=== PATIENT | male | born 1955 | race Caucasian/White ===

== ENCOUNTER 2019-11-02 11:28 | Emergency (ER) | payer OTHER, BC ==
[~2019-11-02] VITALS: Ht 180.3 cm; Wt 94.8 kg
--- NOTE | 2019-11-02 11:48 | NUR ---
PT AMBULATORY TO ED ROOM 7, ACCOMPANIED BY SPOUSE. PT A&OX4, RESP EVEN & UNLABORED, SPEECH CLEAR, SKIN WNL. C/O "MY HEART RATE IS DOUBLE WHAT IT NORMALLY IS". NOTICED INCREASE AT 0400 TODAY. DENIES CP, N/V, COLD SWEATS, CARDIAC HX. SOME LIGHTHEADEDNESS. NO MED TAKEN FOR SX. TRIED CBD OIL LAST NOC (FOR [facility]) - 1ST TIME IN A LONG TIME. LAST ORAL INTAKE: 829 TODAY. LAST BM: TODAY.
[2019-11-02] MEDS ORDERED: LORazepam 1MG TABLET PO ONE (12:00)
[2019-11-02] MEDS ORDERED: METF500T17 PO (12:06)
[2019-11-02] MEDS ORDERED: ATOR20TA86 PO (12:06)
[2019-11-02] MEDS ORDERED: CARB1TAB47 PO (12:06)
[2019-11-02] MEDS ORDERED: LORazepam 1MG TABLET ONE (12:08)
--- NOTE | 2019-11-02 12:12 | NUR ---
EKG DONE. ATIVAN GIVEN PER EMAR.
[2019-11-02 12:24] LABS: BASOPHILS # (AUTO) 0.03 x10^3/uL (0-0.1); BASOPHILS % (AUTO) 0 % (0-1); EOSINOPHILS % (AUTO) 0 % (1-7); LYMPHOCYTES # (AUTO) 1.34 x10^3/uL (1-3.4); LYMPHOCYTES % (AUTO) 16 % (22-44); MD NO; MEAN CORPUSCULAR HEMOGLOBIN 31.5 pg (27.5-34.5); MEAN CORPUSCULAR HGB CONC 33.4 g/dL (33.2-36.2); MEAN CORPUSCULAR VOLUME 94.2 fL (81-97); MEAN PLATELET VOLUME 7.8 fL (7.4-10.4); MONOCYTES % (AUTO) 6 % (2-9); NEUTROPHILS # (AUTO) 6.47 x10^3/uL (1.8-6.8); NEUTROPHILS % (AUTO) 78 % (42-75); PLATELET COUNT 228 x10^3/uL (130-400); RED BLOOD COUNT 4.76 x10^6/uL (4.38-5.82); RED CELL DISTRIBUTION WIDTH 13.2 % (9.4-14.8)
[2019-11-02 12:34] LABS: ALBUMIN 3.9 g/dL (3.4-5.0); ANION GAP 10 mmol/L (5-15); CALCIUM 9.1 mg/dL (8.5-10.1); CHLORIDE 106 mmol/L (98-107)
[2019-11-02 12:40] LABS: ALANINE AMINOTRANSFERASE 11 U/L (12-78); ALKALINE PHOSPHATASE 53 U/L (45-117); BILIRUBIN,TOTAL 0.5 mg/dL (0.2-1.0); CREATININE 0.81 mg/dL (0.7-1.3); T4 (THYROXINE) 6.8 mcg/dL (4.5-12.1); TOTAL PROTEIN 7.6 g/dL (6.4-8.2); TROPONIN I < 0.015 ng/mL (0.000-0.045)
[2019-11-02 13:40] VITALS: BP 126/73
--- NOTE | 2019-11-02 13:40 | NUR ---
REPORTS IMPROVEMENT IN ANXIETY. HR: [id number]
== END 2019-11-02 14:27 | disposition home or self-care (01) ==
LOC: ED 13:38
DX: R00.2 Palpitations (principal); R00.0 Tachycardia, unspecified
CPT/HCPCS: 36415; 80053; 83880; 84436; 84443; 84484; 85025; 93005; 99284